=== PATIENT | male | born 1940 | race Caucasian/White ===

== ENCOUNTER 2019-05-14 05:44 | Inpatient (IN) ==
--- NOTE | 2019-05-08 11:30 | Anesthesiology Consultation ---
Date of Service May 08, 2019 Assessment & Plan (1) Encounter for pre-operative examination: - Hx glidescope intubation: S/P endobronchial ultrasound: 04/29/19: Grade 2 view, Glidescope #3. ETT 8.5 at [facility] - Check CBC with diff AM DOS (recent chemo) Chart Review Chart Review: Acceptable Risk for Surgery and Patient NOT seen in Pre Admission Testing History Surgery Operation Date: 05/14/19 11:20 Proposed Procedures p Navigational Bronchoscopy with ICG Markings, - Nico Herrera MD, FACS s Robotic Right Video Assisted Thoracoscopy with Rigut Upper Lobe Wedge Resection - Nico Herrera MD, FACS Height/Weight Height: 5 ft 10 in Weight: 75.296 kg Allergies Allergy/AdvReac Type Severity Reaction Status Date / Time Iodinated Contrast Media Allergy Mild Rash Verified 05/08/19 09:24 peanut AdvReac Intermediate UPSET Verified 05/08/19 09:24 STOMACH Medications Home Medications Medication Instructions Recorded Confirmed Last Taken lidocaine-prilocaine 2.5 %-2.5 % 1 appln TOPICAL ONCE PRN gm 04/15/19 05/08/19 04/22/19 topical cream prochlorperazine maleate 10 mg 10 mg PO Q6H PRN 04/15/19 05/08/19 Unknown tablet sodium di- and 1 tab PO DAILY 04/15/19 05/08/19 04/28/19 09:30 monophosphate-potassium phos monobasic 250 mg tablet tramadol 50 mg tablet 50 mg PO UD PRN 04/15/19 05/08/19 Unknown doxycycline hyclate 100 mg tablet 100 mg PO UD PRN 04/17/19 05/08/19 Unknown Calcium 600 + D(3) 2 cap PO DAILY 04/18/19 05/08/19 04/28/19 19:00 Magic Swizzle 1 dose PO UD PRN 04/18/19 05/08/19 03/18/19 magnesium 250 mg PO BID 04/18/19 05/08/19 04/28/19 09:30 ondansetron HCl [Zofran] 4 mg PO UD PRN 04/18/19 05/08/19 04/27/19 omeprazole 20 mg PO BID 05/08/19 05/08/19 Unknown Past Medical History Medical History Acid reflux CKD (chronic kidney disease) left sided kidney dysfunction/no further details Colorectal cancer current chemo Colostomy in place History of difficult intubation S/P endobronchial ultrasound: 04/29/19: Grade 2 view, Glidescope #3. ETT 8.5 at [facility] Sleep apnea "mild"/no device Past Family History Family History Mother Cancer History of liver cancer Grandfather (Maternal) Cancer Past Surgical History Surgical History History of appendectomy History of bronchoscopy ENDOBRONCHIAL ULTRASOUND BRONCH History of colonoscopy History of colostomy History of lung biopsy History of surgery TUBE TO DRAIN GALLBLADDER AND TUBE SINCE REMOVED History of surgery A PORT , RIGHT CHEST Social History Smoking Status: Never smoker Do You Dip or Chew Tobacco: No Hx Alcohol Use: No Hx Substance Use: No substance use type: prescription drug Testing Laboratory Results 05/05/19 WBC 4.84 H/H 13.3/40.5 PLATELETS 203 SODIUM 143 POTASSIUM 3.8 CHLORIDE 105 CO2 26 BUN 18 CREATININE 1.2 GLUCOSE 104 Electrocardiogram Date: 04/21/19 Findings: + NSR @ (61) Chest X-Ray Date: 04/29/19 Right greater than left bibasilar opacities, possibly atelectasis. Unlikely considerations include aspiration or hemorrhage. No postprocedural pneumothorax. Echocardiogram Date: 04/25/17 LVEF 60%. No RWMA. Mild AR. Mild MR.
[2019-05-14] MEDS ORDERED: LR 15ML/HR IV SCH (06:00)
[2019-05-14 06:41] LABS: Basophils # (auto) 0.02 K/uL (0-0.2); Basophils % (auto) 0.3 %; Eosinophils # (auto) 0.36 K/uL (0-0.5); Eosinophils % (auto) 5.3 %; Hematocrit (blood only) 38.8 % (42-52); Immature Granulocytes # (auto) 0.03 K/uL (0.00-0.02); Immature Granulocytes % (auto) 0.4 %; Lymphocytes # (auto) 0.77 K/uL (1.2-3.4); Lymphocytes % (auto) 11.3 %; Mean Corpuscular Hemoglobin 32.2 pg (25-34); Mean Platelet Volume 9.4 fL (7.4-10.4); Monocytes # (auto) 0.89 K/uL (0.11-0.59); Neutrophils # (auto) 4.75 K/uL (1.4-6.5); Neutrophils % (auto) 69.7 %; Platelet Count 154 K/uL (130-400); RDW Coefficient of Variation 13.8 % (11.5-14.5); RDW Standard Deviation 47.6 fL (36.4-46.3); Red Blood Count 4.04 M/uL (4.7-6.1); White Blood Count 6.82 K/uL (4.8-10.8)
[2019-05-14] MEDS ORDERED: ONDANSETRON INJ 2 MG/ML 2 ML VIAL ONE (06:47)
[2019-05-14] MEDS ORDERED: MIDAZOLAM HCL 1 MG/ML 2ML VIAL ONE (06:47)
[2019-05-14] MEDS ORDERED: LIDOCAINE HCL 2% 2 ML VIAL/AMP(20MG/ML) INFIL ONE (06:47)
[2019-05-14] MEDS ORDERED: PROPOFOL IV EMULSION 10 MG/ML 20 ML VIAL IV ONE (06:47)
[2019-05-14] MEDS ORDERED: DEXAMETHASONE SOD INJ 4 MG/ML VIAL ONE ×2 (06:47→10:55)
[2019-05-14] MEDS ORDERED: fentaNYL citrate 100 MCG/2 ML VIAL ONE (06:48)
[2019-05-14 06:53] LABS: Mean Corpuscular Hgb Conc 33.5 g/dL (32-36)
[2019-05-14] MEDS ORDERED: BUPIVACAINE 0.5 % 5 MG/1 ML MPF 30ML VIAL ONE (07:01)
[2019-05-14] MEDS ORDERED: BUPIVACAINE LIPOSOME 1.3% 266 MG/20 ML VIAL ONE (07:02)
[2019-05-14] MEDS ORDERED: SODIUM CHLORIDE 0.9% PF 50 ML VIAL ONE (07:02)
[2019-05-14] MEDS ORDERED: ACETAMINOPHEN 1000 MG/100 ML IV IV ONE (07:10)
--- NOTE | 2019-05-14 07:18 | History & Physical Bridge Note ---
Date of Service May 14, 2019 History & Physical Bridge Note I have examined the patient, reviewed the History & Physical and in the interval since the performance of the History & Physical I have noted the following changes of clinical significance: no changes noted
--- NOTE | 2019-05-14 07:29 | Anesthesiology Consultation ---
Date of Service May 14, 2019 Assessment & Plan (1) Encounter for pre-operative examination: Chart Review Chart Review: Acceptable Risk for Surgery and Patient NOT seen in Pre Admission Testing Consults Requested none History Surgery Operation Date: 05/14/19 07:30 Proposed Procedures p Navigational Bronchoscopy with ICG Markings, - Nico Herrera MD, FACS s Robotic Right Video Assisted Thoracoscopy with Right Upper Lobe Wedge Resect ion - Nico Herrera MD, FACS Height/Weight Height: 5 ft 10 in Weight: 73.028 kg Allergies Allergy/AdvReac Type Severity Reaction Status Date / Time Iodinated Contrast Media Allergy Mild Rash Verified 05/14/19 06:18 peanut AdvReac Intermediate UPSET Verified 05/14/19 06:18 STOMACH Medications Home Medications Medication Instructions Recorded Confirmed Last Taken lidocaine-prilocaine 2.5 %-2.5 % 1 appln TOPICAL ONCE PRN gm 04/15/19 05/14/19 04/22/19 topical cream prochlorperazine maleate 10 mg 10 mg PO Q6H PRN 04/15/19 05/14/19 Unknown tablet sodium di- and 1 tab PO DAILY 04/15/19 05/14/19 05/13/19 09:00 monophosphate-potassium phos monobasic 250 mg tablet tramadol 50 mg tablet 50 mg PO UD PRN 04/15/19 05/14/19 Unknown doxycycline hyclate 100 mg tablet 100 mg PO UD PRN 04/17/19 05/14/19 Unknown Calcium 600 + D(3) 2 cap PO DAILY 04/18/19 05/14/19 05/13/19 09:00 Magic Swizzle 1 dose PO UD PRN 04/18/19 05/14/19 03/18/19 magnesium 250 mg PO BID 04/18/19 05/14/19 05/13/19 09:00 ondansetron HCl [Zofran] 4 mg PO UD PRN 04/18/19 05/14/19 04/27/19 omeprazole 20 mg PO BID 05/08/19 05/14/19 Unknown Active Medications Generic Name Dose Route Start Last Admin Trade Name Freq PRN Reason Stop Dose Admin Lactated Ringer's 1,000 mls @ 15 mls/hr 05/14/19 06:00 05/14/19 06:39 Lr IV 05/15/19 05:59 15 mls/hr .Q24H NATHAN Administration NPO Date Last Intake of Fluids: 05/13/19 Time Last Intake of Fluids: 21:00 Date Last Intake of Solids: 05/13/19 Time Last Intake of Solids: 21:00 Past Medical History Medical History Acid reflux CKD (chronic kidney disease) left sided kidney dysfunction/no further details Colorectal cancer current chemo Colostomy in place Sleep apnea "mild"/no device Past Family History Family History Mother Cancer History of liver cancer Grandfather (Maternal) Cancer Past Surgical History Surgical History History of appendectomy History of bronchoscopy ENDOBRONCHIAL ULTRASOUND BRONCH History of colonoscopy History of colostomy History of difficult intubation S/P endobronchial ultrasound: 04/29/19: Grade 2 view, Glidescope #3. ETT 8.5 at [facility] History of lung biopsy History of surgery TUBE TO DRAIN GALLBLADDER AND TUBE SINCE REMOVED History of surgery A PORT , RIGHT CHEST Social History Smoking Status: Never smoker Do You Dip or Chew Tobacco: No Hx Alcohol Use: No Hx Substance Use: No substance use type: prescription drug Physical Exam Vital Signs Last Vital Signs Temp 36.4 C L 05/14/19 06:13 Pulse 65 05/14/19 06:13 Resp 20 05/14/19 06:13 BP 172/83 H 05/14/19 06:13 Pulse Ox 98 05/14/19 06:13 Testing Laboratory Results 05/14/19 06:15 Electrocardiogram Date: 04/21/19 Findings: + NSR @ (61) Chest X-Ray Date: 04/29/19 Right greater than left bibasilar opacities, possibly atelectasis. Unlikely considerations include aspiration or hemorrhage. No postprocedural pneumothorax. Echocardiogram Date: 04/25/17 LVEF 60%. No RWMA. Mild AR. Mild MR.
[2019-05-14] MEDS ORDERED: CLINDAMYCIN 900 MG in DEXTROSE 5% 50 ML IV ONE (07:54)
--- NOTE | 2019-05-14 08:13 | Procedure Note ---
Procedure Note Date of Service May 14, 2019 Note This 79-year-old male has a history of colorectal carcinoma and is developed 2 hypermetabolic nodules in his right upper lobe. We have discussed this case at our multidisciplinary cancer conference. I am going to wedge these 2 nodules out both for diagnosis and for treatment if they do indeed turner in to be metastatic colorectal carcinoma. In order to do this I performed an navigational bronchoscopy in order to lisa 1 of the lesions which is deeper in the parenchyma, with ICG dye. We will then use firefly fluorescence to wedge this out with robotic assistance. Procedure: On the morning of 05/14/2019 the patient was brought to the operating room and laid in the supine position. General anesthesia was induced and endotracheal intubation was performed. Single-lumen tube was used. After appropriate timeout of been called and prophylactic antibiotics given fiberoptic bronchoscope was placed the adapter through the endotracheal tube without difficulty. I closely inspected the airways and saw no abnormalities. Computer probe from the [employer] dimension navigational bronchoscopy system was then placed through the working channel and I registered the airways. I was then I will to get out to the medial segment of the right upper lobe without difficulty and came upon the mass. Under fluoroscopic guidance I injected 1 cc of indocyanine green dye. There was no bleeding. I slowly remove the bronchoscope. We then prepared to do our robot-assisted wedge resection. Coding
--- NOTE | 2019-05-14 08:40 | Fluoroscopy Report ---
FL chest 1V frontal CLINICAL HISTORY: Navigation bronchoscopy. COMPARISON STUDY: Chest CT May 09, 2019. FLUOROSCOPY TIME: 14 seconds. FLUOROSCOPIC IMAGES: 1. FINDINGS: Fluoroscopy was provided for navigational bronchoscopy within the right lung. Right-sided I [id number] is incidentally noted. IMPRESSION: Fluoroscopy provided for navigational bronchoscopy. Electronically signed by: Raymond Mancera M.D. 05/14/2019 8:39 AM
[2019-05-14] MEDS ORDERED: CEFAZOLIN 1000MG 1,000 MG/7.5 ML SYR IV ONE (09:18)
[2019-05-14] MEDS ORDERED: CEFAZOLIN 250 MG/ML 1 GM VIAL ONE (10:07)
[2019-05-14] MEDS ORDERED: CLINDAMYCIN PHOS 300 MG/2 ML VIAL ONE (10:07)
[2019-05-14] MEDS ORDERED: ePHEDrine sulfate 50 MG/ML AMP IV PRN (10:09)
[2019-05-14] MEDS ORDERED: ONDANSETRON INJ 2 MG/ML 2 ML VIAL IV PRN ×2 (10:09→12:16)
[2019-05-14] MEDS ORDERED: ATROPINE SULFATE 0.1 MG/ML 10ML SYR IV PRN (10:09)
[2019-05-14] MEDS ORDERED: fentaNYL citrate 100 MCG/2 ML VIAL IV PRN (10:09)
[2019-05-14] MEDS ORDERED: LABETALOL HCL IV 5 MG/ML 20ML IV PRN (10:09)
[2019-05-14] MEDS ORDERED: PHENYLEPHRINE 100MCG/ML 5ML SYR IV PRN (10:09)
[2019-05-14] MEDS ORDERED: HYDROmorphone INJ 1 MG/ML SYRINGE IV PRN (10:09)
--- NOTE | 2019-05-14 10:11 | Operative Report ---
PG Post Operative Report Pre & Post Diagnosis Operation Date: 05/14/19 07:30 Pre-Op Diagnosis: Lung Nodules, Right Post-op Diagnosis: Metastatic colorectal carcinoma to RUL I identified the patient and participated in the time-out.: Yes Procedure Operation Date: 05/14/19 07:30 Actual Procedures p Navigational Bronchoscopy with ICG Markings(Right) - Nico Herrera MD, FACS s Robotic Right Video Assisted Thoracoscopy with Right Upper Lobe Wedge Resection(Right) X 2 Lymph node biopsies - Nico Herrera MD, FACS Surgeon Nico Herrera MD, FACS [employer] Exchange Administrator Luis ECKERT Estimated Blood Loss 5 Findings Consistent with Post-Op Diagnosis Specimens wedge resection X 2 RUL Mediastinal lymph nodes Drains 24 fr chest tube Anesthesia Type General Complications none Disposition Accompanied Patient To Recovery: No Disposition: Recovery Room Indications This is a 79-year-old male has a history colorectal carcinoma with liver metastases. He actually responded quite nicely to radiation chemotherapy and then underwent a resection with a colostomy. The patient's liver metastases was not resected however it did not light up on his last PET scan it appears he is responded to therapy. He was found to have 2 asymptomatic nodules in his right upper lobe. One was lateral and one was medial. They were enlarging. I was asked to evaluate him for possible biopsy and metastatectomy. We set this up and he had an uncomplicated navigational bronchoscopy with marking of the medial mass with indocyanine green dye. We then performed a robotic thoracoscopic evaluation and were easily able to see the mass. We wedged it out. Also wedged out the more lateral mass which we could see. The margins look good and they both appear to be from colorectal carcinomas. We will of course have to wait for the immunohistochemical stains to say for sure. He tolerated it fine. Description of Procedure Patient had a double lumen tube inserted under bronchoscopic guidance. After appropriate monitoring lines and tubes were placed patient was turned in the left lateral decubitus addition. Right chest was prepped and draped in sterile fashion after appropriate timeout of been called and antibiotics given a 5 mm port was placed in the mid axillary line at about the seventh interspace. There were no adhesions. He had excellent fissures. Then placed an 8 mm port medially and 8 mm port posteriorly and then put a 12 mm port above the diaphragm anteriorly between the camera port and anterior port a few interspaces below for the telecom assistant's port. Carbon dioxide insufflation was begun. The robot was docked. We were able to easily find the medial mass which was not really visible however the indocyanine green was. We used firefly fluorescence. I wedge this out with Endo FABRIZIO stapler with a generous margin. We also wedged out the more lateral mass with a generous margin. These were both sent for frozen sections after being delivered from the field in an Endobag. While waiting for the frozen section we did a limited lymph node dissection and biopsied the right level 2, right level 4, level 7, and level 8 lymph nodes. Frozen section came back as being consistent with colorectal carcinoma. We had good margins. We insert a 24 Lao chest tube through the assistance port directed towards the apex and held in place with heavy silk suture. 4-0 Monocryl was used in running septic or fashion approximate the wound edges of all the other ports. At the beginning of the case we mixed 20 cc of Exparel solution (206 6 mg) with 30 cc of 0.5% bupivacaine and 250 cc of normal saline. We injected each port site before making incision and then did an intrathoracic intercostal block from the second to the 12th rib. A long needle was used to go just above the rib medially and fill the interspace with the Exparel. He tolerated this very well with negligible blood loss. There is no air leak conclusion of the case. He tolerated well was extubated in room and transported to the postanesthesia care unit in stable condition. I attest to the content of the Intraoperative Record and any orders documented therein. Any exceptions are noted below.
[2019-05-14] MEDS ORDERED: OXYCODONE HCL IR 5 MG TAB (IMMEDIATE RELEASE) PO PRN (10:18)
[2019-05-14] MEDS ORDERED: METOCLOPRAMIDE HCL INJ 5 MG/ML 2 ML VIAL IV ONE (10:25)
[2019-05-14] MEDS ORDERED: METOCLOPRAMIDE HCL INJ 5 MG/ML 2 ML VIAL ONE (10:45)
--- NOTE | 2019-05-14 10:49 | XRay Report ---
XR chest 1V portable CLINICAL HISTORY: 79 years-old Male presenting with right wedge resection. TECHNIQUE: Portable upright AP view of the chest was obtained. COMPARISON: 04/29/2019. FINDINGS: Large bore right pleural drain position at the right upper lung. Right subclavian Mediport terminates at the superior cavoatrial junction. Cardiomediastinal silhouette normal. Suture margin projects ove r the right midlung. Mild pulmonary vascular prominence, which may be increased from prior. Slight in terval increase in mid to basilar vague opacity. Trace pleural effusions may now be present. No demon strable pneumothorax. Osseous structures normal. Upper abdomen normal. IMPRESSION: 1. Postsurgical changes of the right lung. No demonstrable pneumothorax. 2. Right pleural drain. 3. Volume overload and congestive change with trace bilateral pleural effusions. 4. Suspected increased basilar predominant atelectasis versus less likely developing edema. Electronically signed by: Joselito Kumari M.D. 05/14/2019 10:48 AM
[2019-05-14] MEDS ORDERED: GLYCOPYRROLATE 0.2 MG/ML VIAL ONE (10:55)
[2019-05-14] MEDS ORDERED: NEOSTIGMINE METHYLSULFATE 5 MG/5 ML SYR ONE (10:55)
[2019-05-14] MEDS ORDERED: DiphenhydrAMINE HCL 50 MG/ML VIAL ONE (10:55)
[2019-05-14] MEDS ORDERED: raNITIdine HCl 25 MG/ML VIAL IV ONE (10:55)
[2019-05-14] MEDS ORDERED: PHENYLEPHRINE 100MCG/ML 5ML SYR ONE (10:56)
[2019-05-14] MEDS ORDERED: ePHEDrine sulfate 50 MG/ML SYR ONE (10:56)
--- NOTE | 2019-05-14 11:27 | Anesthesiology Progress Note ---
Date of Service May 14, 2019 Anesthesia Post Procedure Vital Signs Vital Signs: Temp Pulse Pulse Resp BP Pulse Ox 05/14/19 11:25 36.2 C L 73 14 152/82 H 100 05/14/19 11:15 76 12 156/83 H 100 05/14/19 11:05 73 16 149/82 H 100 05/14/19 10:55 70 12 159/87 H 100 05/14/19 10:45 68 13 160/82 H 100 05/14/19 10:36 35.2 C L 73 16 154/89 H 100 05/14/19 06:13 36.4 C L 65 20 172/83 H 98 Transfer of Care Handoff Completed per policy Notes Mental Status: alert / awake / arousable Patient Amnestic to Procedure: Yes Nausea / Vomiting: adequately controlled Pain: adequately controlled Airway Patency, RR, SpO2: stable & adequate BP & HR: stable & adequate Hydration State: stable & adequate Anesthetic Complications: no major complications apparent and Pt Satisfied with anesthetic care
[2019-05-14] MEDS ORDERED: MoRPHine SULFATE 2 MG/ML CARP IV PRN (12:16)
[2019-05-14] MEDS ORDERED: D5W AND 1/2NSS 1,000 ML IV SCH (13:00)
--- NOTE | 2019-05-14 14:20 | Pharmacy Report ---
Pharmacy Glycemic Short Note 2 - Date of Service May 14, 2019 - Glycemic Short OUTPATIENT ANTIDIABETIC REGIMEN: * Pt is to manage BSGs with insulin pump per outpatient settings. * RN will have patient read and sign agreement [id number] Insulin Pump Therapy Patient Agreement. * RN will provide and explain form [id number] Flowsheet for Patient * Patient will document their insulin dose given on NS-824 which is kept at the bedside, available to caregivers upon request, and which becomes part of the permanent medical record. If at any time the patients condition evidences that he/she is not able to manage the insulin pump (i.e. frequent hypo/hyperglycemia) Pharmacy will assume glycemic control by discontinuing the pump & managing with SQ basal bolus insulin regimen for the interim.
[2019-05-14] MEDS: ACETAMINOPHEN 1,000 MG/100 ML VIAL IV SCH ×2 (14:32→21:29)
[2019-05-14] MEDS ORDERED: TRAMADOL HCL 50 MG TABLET PO PRN (17:15)
[2019-05-14] MEDS ORDERED: NON-FORMULARY MEDICATION (Magnesium 250 MG) PO SCH (21:00)
[2019-05-14] MEDS: PANTOprazole 40 MG TAB PO SCH (21:29)
[2019-05-14] MEDS: DOCUSATE SODIUM 100 MG CAP PO SCH (21:29)
[2019-05-15] MEDS: ACETAMINOPHEN 1,000 MG/100 ML VIAL IV SCH (05:50)
--- NOTE | 2019-05-15 07:27 | XRay Report ---
XR chest 1V portable CLINICAL HISTORY: right wedge resection COMPARISON STUDY: 05/14/2019 FINDINGS: The cardiac and mediastinal contours remain stable. There is a right-sided A-Port catheter. There is a right sided chest tube. There is interval decrease in the size of the trace right apical pneumothorax. There is improving aeration of the right lung with mild right basilar atelectatic cronin es. There is resolution of the previously described congestive failure/fluid overload.[ IMPRESSION: 1. Postsurgical changes in the right 2. Interval decrease in size and trace right apical pneumothorax 3. Resolving pulmonary vascular congestion/fluid overload Electronically signed by: Venkata Ely M.D. 05/15/2019 7:26 AM
--- NOTE | 2019-05-15 08:28 | XRay Report ---
XR chest 1V portable CLINICAL HISTORY: tube removal tube position COMPARISON STUDY: 05/15/2019 FINDINGS: Interval removal of the right chest drainage tube. No significant abnormality minimal resid ual right apical pneumothorax. Postoperative changes right midlung. Left lung is grossly clear. There is minimal bibasilar interstitial prominence. IMPRESSION: 1. Stable postoperative changes right hemithorax. 2. Interval removal of the right-sided chest tube. 3. No residual and/or minimal residual right apical pneumothorax. The above report was generated using voice recognition software. It may contain grammatical, syntax or spelling errors. Electronically signed by: Augustine Clarke M.D. 05/15/2019 8:27 AM
[2019-05-15] MEDS ORDERED: ENOXAPARIN INJ 40 MG/0.4 ML SYR SQ SCH (09:00)
[2019-05-15] MEDS ORDERED: POT PHOSPHATE MONOBASIC W/ SOD TAB PO SCH (09:00)
[2019-05-15] MEDS ORDERED: CALCIUM 600MG + VIT D 400 IU TAB PO SCH (09:00)
[2019-05-15] MEDS: DOCUSATE SODIUM 100 MG CAP PO SCH (09:02)
[2019-05-15] MEDS: PANTOprazole 40 MG TAB PO SCH (09:02)
[2019-05-15] MEDS ORDERED: ACETAMINOPHEN 325 MG TAB PO SCH (12:00)
--- NOTE | 2019-05-15 15:06 | Discharge Summary ---
Date of Service Admission: May 14, 2019 Discharge: May Discharge Data Procedures Performed Operation Date: 05/14/19 07:30 Actual Procedures s Navigational Bronchoscopy with ICG Markings(Right) - Nico Herrera MD, FACS p Robotic Right Video Assisted Thoracoscopy with Right Upper Lobe Wedge Resection(Right) X 2 Lymph node biopsies - Nico Herrera MD, FACS Hospital Course (1) Status post lung surgery: (2) Lung nodules: This 79-year-old male with a history of colorectal carcinoma was found to have enlarging masses which are hypermetabolic in the right upper lobe. On 05/14/2019 the patient was electively admitted brought to the operating room for electromagnetic navigational bronchoscopy was performed. The deeper nodule of the medial aspect of the right upper lobe was marked with indocyanine green dye. We then turned the patient and performed a right thoracoscopy robotically using the firefly fluorescence. To see this area which was marked. We wedged out the medial and the more lateral lobe nodules. These appear to be metastatic from his colorectal carcinoma. We also did lymph node biopsies of the right level 2, 4, 7, and 8 stations. Patient did quite well. He was ambulating in the hallway and tolerating a diet soon after surgery. He had a very quiet night the following morning removed his chest tube. His x-ray look quite good. He was on room air. He is tolerating regular diet and voiding well. Patient was discharged home we will see him back next week to go over her final pathology reports. I discussed this plan with the patient and his .
== END 2019-05-15 10:55 | disposition home health service (06) | DRG 164 ==
LOC: ASU 05:44 → 3W 10:18